=== PATIENT | male | born 1950 | race Caucasian/White ===

== ENCOUNTER 2020-06-20 06:17 | Inpatient (IN) | payer OTHER ==
[~2020-06-20] VITALS: Ht 177.8 cm; Wt 106.8 kg
[2020-06-20 08:50] VITALS: BP 171/79
--- NOTE | 2020-06-20 10:15 | EKG ---
[facility] [place] [address] [place] [address] ELECTROCARDIOGRAM REPORT Name: KASEY RUSS Room #: 201-P ADM IN M.R.#: [id number] Admission: 06/20/20 Attend Phys: Emigdio Hamilton MD Discharge: Date of : 46 Report #: [id number] THIS REPORT FOR: cc: Martha Huang Tami FNP Lundgren, Craig H. 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
[2020-06-20 10:18] LABS: CHOLESTEROL 172 mg/dL (<200); HDL CHOLESTEROL 36 mg/dL (>40); LDL CHOLESTEROL 105 mg/dL (<100); TC:HDL 4.8 Ratio (Not establshd); TRIGLYCERIDE 159 mg/dL (<150); VLDL 32 mg/dL (<40)
[2020-06-20 11:05] VITALS: BP 140/85
[2020-06-20 11:20] LABS: HEMATOCRIT 46.8 % (42.0-52.0); HEMOGLOBIN 14.8 gm/dL (14.0-18.0); MCH 24.9 pg (26.0-34.0); MCHC 31.7 g/dL (28.0-37.0); MCV 78.6 fL (80.0-100.0); RBC 5.95 mil/uL (4.50-6.00); RDW 14.9 % (10.5-14.5); WBC 6.6 thou/uL (4.0-11.0)
[2020-06-20 11:23] LABS: CREATININE 1.1 mg/dL (0.7-1.3); POTASSIUM 3.6 mmol/L (3.5-5.1)
[2020-06-20 11:27] LABS: TSH 1.848 uIU/mL (0.358-3.740)
[2020-06-20 12:00] LABS: FOLIC ACID 23.6 ng/mL (8.6-58.9)
--- NOTE | 2020-06-20 13:46 | 2DMMODE ---
[facility] [place] [place] [address] 2 D/M-MODE ECHOCARDIOGRAM Name: KASEY RUSS Room #: 201-P ADM IN M.R.#: [id number] Admission: 06/20/20 Attend Phys: Emigdio Hamilton MD Discharge: Date of : 46 Report #: [id number] THIS REPORT FOR: cc: Martha Huang Tami FNP Santiago, Patrick MD [facility] ~ APPROVED REPORT Study performed: 06/20/2020 13:01:28 EXAM: Comprehensive 2D, Doppler, and color-flow Echocardiogram Patient Location: Bedside Room #: 201 Status: routine BSA: 2.24 HR: 74 bpm BP: 140/85 mmHg Rhythm: NSR Other Information Study Quality: Adequate Indications Dyspnea Chest Pain NSTEMI. Hx: HTN, DM, Obesity 2D Dimensions RVDd: 32.39 mm IVSd: 12.02 (7-11mm) LVOT Diam: 21.60 (18-24mm) LVDd: 49.96 mm PWd: 13.01 (7-11mm) Ascending Ao: 31.19 (22-36mm) LVDs: 35.50 (25-40mm) Aortic Root: 37.34 mm Volumes Left Atrial Volume (Systole) Single Plane 4CH: 50.38 mL Single Plane 2CH: 45.72 mL LA ESV Index: 23.00 mL/m2 Aortic Valve AoV Peak Guille.: 1.30 m/s AO Peak Gr.: 6.77 mmHg LVOT Max P.31 mmHg [facility] [address] [place] [address] 2 D/M-MODE ECHOCARDIOGRAM Name: KASEY RUSS Room #: 201-P ADM IN M.R.#: [id number] Admission: 06/20/20 Attend Phys: Emigdio Hamilton MD Discharge: Date of : 46 Report #: [id number] LVOT Max V: 1.04 m/s FRANCESCA Vmax: 2.92 cm2 Mitral Valve E/A Ratio: 0.5 MV Decel. Time: 169.56 ms MV E Max Guille.: 0.55 m/s MV A Guille.: 1.19 m/s MV PHT: 49.17 ms IVRT: 96.89 ms Pulmonary Valve PV Peak Guille.: 0.89 m/s PV Peak Gr.: 3.15 mmHg Pulmonary Vein P Vein S: 0.37 m/s P Vein D: 0.28 m/s P Vein S/D Ratio: 1.32 Tricuspid Valve RAP Estimate: 5.00 mmHg Left Ventricle The left ventricle is normal size. There is normal LV segmental wall motion. Mild concentric left ventricular hypertrophy. Left ventricular systolic function is normal. LVEF is 60-65%. Mild diastolic dysfunction is present. Right Ventricle The right ventricle is normal size. The right ventricular systolic function is normal. Atria The left atrium size is normal. The right atrium size is normal. Aortic Valve The aortic valve is normal in structure; mildly sclerotic leaflets. No aortic regurgitation is present. There is no aortic valvular stenosis. Mitral Valve The mitral valve is normal in structure. Mild mitral regurgitation. Tricuspid Valve [facility] [address] [place] [address] 2 D/M-MODE ECHOCARDIOGRAM Name: KASEY RUSS Room #: 201-P ADM IN M.R.#: [id number] Admission: 06/20/20 Attend Phys: Emigdio Hamilton MD Discharge: Date of : 46 Report #: [id number] The tricuspid valve is normal in structure. Trace tricuspid regurgitation. Unable to assess PA pressure. Pulmonic Valve The pulmonary valve is normal in structure. Trace pulmonic regurgitation. Great Vessels The aortic root is normal in size. The ascending aorta is normal in size. IVC is normal in size and collapses >50% with inspiration. Pericardium There is no pericardial effusion. <Conclusion> Normal left ventricular size Mild concentric hypertrophy EF 60%, no obvious segmental wall motion abnormality Grade 1 diastolic dysfunction Normal right ventricular size and function Normal atrial size Mildcentral mitral valve insufficiency Trace of tricuspid valve insufficiency, unable to assess for PA systolic pressure No pericardial effusion <ELECTRONICALLY SIGNED> By: Osmin Milner MD, [facility] 06/20/20 1346 D: [id number] 45 Osmin Milner MD, FACC /INF
--- NOTE | 2020-06-20 14:50 | NUR ---
SPIRITUAL CARE CONSULT COMPLETED BY THIS SEARCH MARKETING ANALYST.
[2020-06-20] MEDS ORDERED: TOPROL XL25 MG (15:18)
[2020-06-20] MEDS ORDERED: ALLOPURINOL 10100 M1 (15:19)
[2020-06-20] MEDS ORDERED: JARDIANCE25 MG (15:20)
[2020-06-20] MEDS ORDERED: PROTONIX40 M2 (15:20)
[2020-06-20] MEDS ORDERED: COZAAR 25 MG TA25 MG (15:21)
[2020-06-20] MEDS ORDERED: MELATONIN10 M3 (15:21)
[2020-06-20] MEDS ORDERED: LYRICA25 MG (15:22)
[2020-06-20 15:55] VITALS: BP 149/89
--- NOTE | 2020-06-20 16:24 | NUR ---
ASSUMED CARE OF PT AT APPROX 0830, TRANSFER FROM [place], [place] D/T NSTEMI. ADMISSION ORDERS AND INSTRUCTIONS COMPLETE. PT SETTLED IN ROOM. PT A&OX4, NO C/O PAIN. SIGNIFICANT OTHER AT BEDSIDE. HEP DRIP AT 16ML/HR. PLAN FOR CATH IN THE MORNING. WILL CONTINUE TO MONITOR AND FOLLOW POC.
[2020-06-20 19:23] VITALS: BP 140/76
[2020-06-21] VITALS (11 sets, daily range): BP systolic 118–148; BP diastolic 59–85
[2020-06-21 05:07] LABS: GLYCOHEMOGLOBIN (HGB A1C) 6.8 % (4.8-5.6)
--- NOTE | 2020-06-21 07:59 | NUR ---
PT ALERT AND ORIENTED. MAINTAINED IN HEPARIN DRIP. DOSE ADJUSTED ACCORDING TO APTTs. DENIES ANY CHEST PAIN NAUSEA OR VOMITING. PLAN FOR CARDIAC CATH THIS AM. WAS NPO SINCE MIDNIGHT. WILL CONTINUE TO MONITOR AND FOLLOW POC.
--- NOTE | 2020-06-21 16:49 | CATHLAB ---
[facility] [place] [address] INVASIVE PROCEDURE REPORT Name: KASEY RUSS Room #: 201-P ADM IN M.R.#: [id number] Admission: 06/20/20 Attend Phys: Manda Osborne MD Discharge: Date of : 46 Report #: [id number] THIS REPORT FOR: cc: Martha Huang Tami FNP Mancuso, Gerald M. MD [facility] ~ APPROVED REPORT Study performed: 06/21/2020 08:40:42 Patient Details Patient Status: In-Patient Room #: The patient is a 70 year-old male Event Personnel Eleno Olguin Machinist Supervisor Outside, Shakeel Krause RN RN, Saundra Suazo RTR, Emre Solis Sherra RTR Monitor Procedures Performed Art Access - R femoral artery* Left Heart Cath w/or w/o Coronaries 9359213 [facility] Aortogram Abdominal Peripheral Angio 591436 ERNESTINA Place w/wo Plasty Single CIRC 160241 13469 Initial Mod Sed Same Phys/QHP 5y 123110 21569 Initial Mod Sed Same Phys/QHP Gr5y 305275 16261 Mod Sed Same Phys/QHP Ea 281404 Hemostasis w/ Mynx Indication Chest pain Procedure Narrative The Right Groin^ was infiltrated with 1% Lidocaine subcutaneous anesthesia. A PINNACLE 6FR Sheath #[id number] sheath was inserted into the RFA^. Coronary angiography was performed using coronary diagnostic catheters. The right coronary system was accessed and visualized with a JR4 catheter. The left coronary system was accessed and visualized with a JL4 catheter. The left ventricle was accessed and visualized with a PIGTAIL catheter. Left ventriculogram was performed in 30 degree projection. An aortogram of the abdominal aorta was performed. Closure device was deployed with a 6 Fr MYNXGRIP 6/7F #[id number]. The patient tolerated the procedure well and there were no complications associated with the procedure. There was no hematoma. Intraoperative Conscious Sedation [facility] [address] [place] [address] INVASIVE PROCEDURE REPORT Name: KASEY RUSS Room #: 201-P [facility] IN M.R.#: [id number] Admission: 06/20/20 Attend Phys: Jess Schumacher Discharge: Date of : 46 Report #: [id number] Sedation start time: 914 Case end Time: 1008 Fentanyl 50 mcg Versed 1 mg Fluoro Time: 6.80 minutes Dose: DAP 85502.30 cGycm2 2806 mGy Contrast Type and Amount: Omnipaque 165 ml Hemodynamics The aortic pressure is 153/83 mmHg with a mean of 107 mmHg. The left ventricular pressure is 148/10 mmHg with a mean of mmHg. The left ventricular end diastolic pressure is 26 mmHg. PCI Technique Lesion Percutaneous coronary intervention was performed on the mid circumflex artery segment. A LAUNCHER 6FR EBU 4 #[id number] Guide Catheter was used to engage the ostium. A Luge Wire .014 x 182CM #[id number] Interventional Guidewire was used to cross the lesion. BALLOON DILATION A Balloon catheter Sprinter OTW 3.0 x 12 #[id number] was inserted and inflated up to 8.00atm for 16seconds. Additional Inflation: 12.00atm for 36seconds. Additional Inflation: 5.00atm for 9seconds. ADDITIONAL INFLATIONS WERE 14 ATMS FOR 31 SECS STENT DEPLOYMENT A drug-eluting stent RESOLUTE RAVINDRA OTW 3.5 X 8 #[id number] was inserted and inflated up to 10.00atm for 23seconds. Additional Inflation: 18.00atm for 28seconds. Conclusion 1. Successful PTCA stent of a mid dominant circumflex artery subtotally occluded with placement of a 3.5 x 8 resolute medicated stent 0% residual BREANA grade III flow. This is at filling the extensive area of the posterior and inferior lateral wall. #2 large left main giving rise to the LAD and circumflex #3 the LAD is moderately tortuous and mildly calcified. There is an eccentric mid vessel lesion of 50 to 60% and moderate disease mid distal it does wrap the apex briskly. #4 small nondominant right coronary artery mildly diseased #5 normal left jugular size with inferior wall mid inferior and basilar hypokinesis EF 50% #6 abdominal aortogram with mild disease no significant aneurysm. Recommendations and plan: Continue aggressive risk factor [facility] [address] [place] [address] INVASIVE PROCEDURE REPORT Name: KASEY RUSS Room #: 201-P ADM IN M.R.#: [id number] Admission: 06/20/20 Attend Phys: Jess Schumacher Discharge: Date of : 46 Report #: [id number] modification. Dual antiplatelet therapy has been initiated. Patient is pain-free with resolution of EKG changes on transfer to CCU to follow post coronary stent protocol. <ELECTRONICALLY SIGNED> By: Eleno Olguin MD, FACC 06/21/201648 48 48 Eleno Olguin MD, FACC /INF
--- NOTE | 2020-06-21 17:00 | NUR ---
ASSUMED CARE OF PT AT SHIFT CHANGE. ASSESSMENTS CHARTED. MEDS GIVEN PER OCT. PT A&OX4, NO C/O PAIN. R GROIN CDI, NO HEMATOMA OR BRUISING. PLAN TO DC IN AM. WILL CONTINUE TO MONITOR AND FOLLOW POC.
[2020-06-22 03:20] VITALS: BP 111/71
[2020-06-22 05:25] LABS: HEMATOCRIT 44.8 % (42.0-52.0); HEMOGLOBIN 14.4 gm/dL (14.0-18.0); MCH 25.3 pg (26.0-34.0); MCHC 32.1 g/dL (28.0-37.0); MCV 78.9 fL (80.0-100.0); RBC 5.67 mil/uL (4.50-6.00); WBC 6.7 thou/uL (4.0-11.0)
--- NOTE | 2020-06-22 05:58 | NUR ---
Pt alert and oriented. Slept through the night. No concerns reported s/p cardiac cath. Denies chest pain, nausea or vomiting. Groin site c/d/i. Anticipates to DC this am. will continue to monitor and follow poc.
[2020-06-22] MEDS ORDERED: EFFIENT10 MG PO (07:19)
[2020-06-22] MEDS ORDERED: LIPITOR40 MG PO (07:19)
[2020-06-22] MEDS ORDERED: ASPIR 8181 MG PO (07:19)
[2020-06-22 07:45] VITALS: BP 133/66
[2020-06-22 07:59] LABS: ALBUMIN 3.3 g/dL (3.4-5.0); CALCIUM 8.9 mg/dL (8.5-10.1); CREATININE 1.1 mg/dL (0.7-1.3); POTASSIUM 3.7 mmol/L (3.5-5.1); TOTAL BILIRUBIN 1.1 mg/dL (0.2-1.0); TOTAL PROTEIN 7.1 g/dL (6.4-8.2)
[2020-06-22 08:35] LABS: TROPONIN-I 0.73 ng/mL (<0.06)
[2020-06-22] MEDS ORDERED: METOPROLOL SUCC25 M1 PO (10:19)
[2020-06-22] MEDS ORDERED: COZAAR 50 MG TA50 M1 PO (10:19)
[2020-06-22] MEDS ORDERED: MIRALAX17 GM PO (10:19)
[2020-06-22] MEDS ORDERED: NITROGLYCERIN0.4 MG SUBLING (10:19)
--- NOTE | 2020-06-22 10:29 | NUR ---
PT. DOING WELL THIS AM. DISCHARGED ORDERS JUST RECIEVED. MASSIVE TEACHING ALL THIS AM WHEN TO CALL FOR HELP, SIGNS AND SYMPTOMS OF A HEART ATTACK AND WHEN TO CALL EMS. DENIES ANY SOB, NO CHEST PAIN AT ALL.
[2020-06-22 10:33] VITALS: BP 133/66
--- NOTE | 2020-06-22 12:18 | EKG ---
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1950 Requested By: Maricel Ann Order Number: [id number] MD: Osmin Milner Measurements Intervals [place] Rate: 82 P: 57 PA: 176 QRS: -55 QRSD: 98 T: 48 QT: 370 QTc: 432 Interpretive Statements Sinus rhythm Abnormal R-wave progression, late transition Inferior infarct, old Compared to ECG 06/20/2020 09:39:23 Poor R-wave progression no longer present Myocardial infarct finding still present Electronically Signed On 06-22-2020 12:18:10 DRAMATIC ARTS HISTORIAN by Osmin Milner [email or web address] <ELECTRONICALLY SIGNED> By: Osmin Milner MD, FACC 06/22/20 1218 9 9 Osmin Milner MD, FAC /EPI
--- NOTE | 2020-06-30 15:17 | HC ---
[facility] [place] [address] CONSULTATION Name: KASEY RUSS Room #: 201-P [facility] IN M.R.#: [id number] Admission: 06/20/20 Attend Phys: Manda Osborne MD Discharge: 06/22/20 Date of : 46 Report #: [id number] THIS REPORT FOR: cc: Martha Huang Tami FNP Mancuso, Gerald M. MD FAC ~ CARDIOLOGY CONSULT HISTORY OF PRESENT ILLNESS: The patient is a 70-year-old male transferred here to [facility] from [place], [place]. Followed by Coby Huang, nurse practitioner. He apparently had a history of a workup in 11/2018, that did not have any conclusive findings, but he is admitted here with a significant occurrence of chest pain yesterday afternoon after trying to separate 2 fighting dogs, it lasted approximately an hour and a half and he had a slight bump in his troponin at [place]. Our troponin here is pending. He does not have documented coronary artery disease, but multiple risk factors including hypertension, hypercholesterolemia, and diabetes. He also notes that he has had twinges of chest pain over the last 2 weeks, but nothing prior to that, and more fatigue and there has been an exertional component to this. The troponin was apparently 0.28 from [place] and I am looking to document that. MEDICATIONS: His home medications have been metoprolol 25 b.i.d., allopurinol 100, aspirin, Protonix, Jardiance 25 daily, losartan 25 daily, Toujeo injections and pregabalin 25 b.i.d. PAST MEDICAL HISTORY: Positive for the diabetes, hypertension, suspected hypercholesterolemia, history of syncope, DJD. FAMILY HISTORY: Extremely positive with 3 brothers and a mother with premature coronary disease. SOCIAL HISTORY: He is living with his significant other. Previously , has children. Retired from [employer]. Currently living in [place]. No tobacco. He quit 14 years ago and no significant alcohol intake. REVIEW OF SYSTEMS: Negative except for as stated above, increasing fatigue and some nocturia. PHYSICAL EXAMINATION: GENERAL: Pleasant, alert. VITAL SIGNS: Pulse 80s, blood pressure 142/80. HEENT: Eyes reveal xanthelasmas. Pharynx is clear. NECK: Shows preserved upstrokes without JVD or bruits. LUNGS: Clear. [facility] [address] [place] [address] CONSULTATION Name: KASEY RUSS Room #: 201-P DIS IN M.R.#: [id number] Admission: 06/20/20 Attend Phys: Manda Osborne MD Discharge: 06/22/20 Date of : 46 Report #: [id number] CARDIOVASCULAR: Regular rate and rhythm, S1, S2, without murmur or gallop. ABDOMEN: Soft. No HSM or abdominal bruit. EXTREMITIES: Reveal trace of edema, nonpitting. NEUROLOGIC: Nonfocal. SKIN: Warm and dry without xanthoma or ulcer. MUSCULOSKELETAL: No gross joint deformity. ASSESSMENT: 1. Non-ST elevation myocardial infarction. 2. Hypertension. 3. Suspected hypercholesterolemia. 4. Diabetes. 5. Degenerative joint disease. 6. History of nephrolithiasis. RECOMMENDATIONS AND PLAN: Aspirin, heparin drip, we will maintain. He is pain free. We obtained our lab here at [facility]. EKG has ST depression anteriorly. He has had no pain since 5:30 p.m. yesterday. We will obtain echo, a carotid Doppler. Awaiting lab, and creatinine to decide on, we will proceed to the catheterization lab sometime in the next 24 hours to delineate the anatomy. Risks, benefits, alternatives were discussed ____ does elect to proceed. Thank you for asking me to assist in the care of this patient. <ELECTRONICALLY SIGNED> By: Eleno Olguin MD, FACC 06/30/20 1517 1002 1814 Eleno Olguin MD, FACC /nt
== END 2020-06-22 12:06 | disposition home or self-care (01) | DRG 246 ==
LOC: 2N 06:17
PROVIDERS: Internal Medicine Cardiovascular Disease; Nurse Practitioner; Nurse Practitioner Adult Health; ADMIT Hospitalist; ATTEND Hospitalist
PROC: B2111ZZ Fluoroscopy of Multiple Coronary Arteries using Low Osmolar Contrast (ICD-10-PCS; principal; 2020-06-21)
PROC: 027034Z Dilation of Coronary Artery, One Artery with Drug-eluting Intraluminal Device, Percutaneous Approach (ICD-10-PCS; principal; 2020-06-21)
PROC: 4A023N7 Measurement of Cardiac Sampling and Pressure, Left Heart, Percutaneous Approach (ICD-10-PCS; principal; 2020-06-21)
PROC: B2151ZZ Fluoroscopy of Left Heart using Low Osmolar Contrast (ICD-10-PCS; principal; 2020-06-21)
PROC: B4101ZZ Fluoroscopy of Abdominal Aorta using Low Osmolar Contrast (ICD-10-PCS; principal; 2020-06-21)
DX: I21.4 Non-ST elevation (NSTEMI) myocardial infarction (principal); I50.31 Acute diastolic (congestive) heart failure; I10 Essential (primary) hypertension; M19.90 Unspecified osteoarthritis, unspecified site; E66.01 Morbid (severe) obesity due to excess calories; Z87.442 Personal history of urinary calculi; E11.42 Type 2 diabetes mellitus with diabetic polyneuropathy; Z85.51 Personal history of malignant neoplasm of bladder; Z86.73 Personal history of transient ischemic attack (TIA), and cerebral infarction without residual deficits; Z82.49 Family history of ischemic heart disease and other diseases of the circulatory system; Z87.891 Personal history of nicotine dependence; Z68.33 Body mass index [BMI] 33.0-33.9, adult; Z79.82 Long term (current) use of aspirin; Z79.899 Other long term (current) drug therapy
CPT/HCPCS: 10081

== ENCOUNTER → 2020-07-20 | Outpatient (CLI) | payer OTHER ==
[~2020-07-20] MED LIST: ALLOPURINOL 10100 M1; ASPIR 8181 MG PO; COZAAR 25 MG TA25 MG; COZAAR 50 MG TA50 M1 PO; EFFIENT10 MG PO; JARDIANCE25 MG; LIPITOR40 MG PO; LYRICA25 MG; MELATONIN10 M3; METOPROLOL SUCC25 M1 PO; MIRALAX17 GM PO; NITROGLYCERIN0.4 MG SUBLING; PROTONIX40 M2; TOPROL XL25 MG
== END ==
LOC: SJCVC 13:57
PROVIDERS: ATTEND Nurse Practitioner Adult Health
DX: R94.31 Abnormal electrocardiogram [ECG] [EKG] (principal); I25.10 Atherosclerotic heart disease of native coronary artery without angina pectoris; I10 Essential (primary) hypertension; E78.00 Pure hypercholesterolemia, unspecified; I42.9 Cardiomyopathy, unspecified; E11.9 Type 2 diabetes mellitus without complications; I21.4 Non-ST elevation (NSTEMI) myocardial infarction

== ENCOUNTER → 2020-10-17 | Outpatient (CLI) | payer OTHER | LOC: SJCVCIMAG 08:32 | PROVIDERS: ATTEND Internal Medicine Cardiovascular Disease | DX: I25.10 Atherosclerotic heart disease of native coronary artery without angina pectoris (principal); Z79.899 Other long term (current) drug therapy ==

== ENCOUNTER → 2021-06-28 | Outpatient (CLI) | payer OTHER | LOC: SJCVCIMAG 07:24 | PROVIDERS: ATTEND Internal Medicine Cardiovascular Disease | DX: I25.10 Atherosclerotic heart disease of native coronary artery without angina pectoris (principal); R53.83 Other fatigue; R06.00 Dyspnea, unspecified; I10 Essential (primary) hypertension; E11.9 Type 2 diabetes mellitus without complications; G47.30 Sleep apnea, unspecified; E78.5 Hyperlipidemia, unspecified; Z87.891 Personal history of nicotine dependence; Z82.49 Family history of ischemic heart disease and other diseases of the circulatory system ==